=== PATIENT | male | born 1945 | race African-American/Black ===

== ENCOUNTER → 2019-11-04 | Outpatient (CLI) | payer OTHER ==
--- NOTE | 2019-11-04 16:39 | RADIOLOGY REPORT (SQ) ---
EXAM DESCRIPTION: PET CT SKULL/THIGH IMAGES COMPLETED DATE/TIME: 11/04/2019 12:18 pm REASON FOR STUDY: ABN FINDINGS ON CT SCAN Z01.89 ENCOUNTER FOR OTHER SPECIFIED SPECIAL EXAMINATIONS . Right middle lobe pulmonary nodule on CT scan. COMPARISON: CT chest, 09/16/2019. RADIONUCLIDE AND DOSE: 10.2 mCi F18 FDG The route of agent administration: Intravenous FASTING BLOOD SUGAR: 95 mg/dl CONTRAST TYPE AND DOSE: No CT contrast given. TECHNIQUE: Blood glucose level was verified. Above dose of FDG was injected intravenously. 2-D seg mented attenuation correction images were obtained from the base of the skull to the midthighs. Nonc ontrast CT images were obtained for attenuation correction and fusion with emission images. CT image s were performed without oral or intravenous contrast and are not sensitive for parenchymal lesions. A series of overlapping emission PET images were obtained. Images reviewed and manipulated at [facility] work station by the radiologist. Images stored on PACS. LIMITATIONS: None. FINDINGS: HEAD AND NECK: There is hypermetabolic activity in the left maxillary sinus with there is diffuse mucosal thickening and sinus wall buttressing, consistent with chronic left maxillary sinusit is. SUV 6.8. No cervical adenopathy or destructive features. Otherwise normal physiologic activity in the brain. CHEST: Slight interval decrease in size of the solid nodule in the right middle lobe now measuring 1. 3 x 1 cm, previously 1.7 x 1.3 cm by my measurement when measured similarly. This has no hypermetabo lic activity and may represent a resolving infectious/ inflammatory nodule. There is background mode rate pulmonary emphysema. No abnormal hypermetabolic activity in the chest. ABDOMEN AND PELVIS: No areas of abnormal metabolic activity in the abdomen or pelvis. Expected physi ologic activity is present in the genitourinary system and bowel. Background hepatic activity SUV 3. 4. PROXIMAL LOWER EXTREMITIES: No areas of abnormal metabolic activity in the soft tissues of the lower extremities. BONES: No abnormal metabolic activity in the visualized skeleton. ADDITIONAL CT FINDINGS: There is enlargement of the pulmonary arteries with main pulmonary artery renetta suring 4 cm diameter, right pulmonary artery measuring 3.5 cm and left pulmonary artery measuring 3.2 cm. Moderate cardiomegaly. Calcified coronary arteries. Tiny left hepatic lobe cyst. Bilateral r enal cortical cysts. No solid renal mass. Prostatomegaly with prostate measuring 6.7 x 6.6 cm. Mas s effect on the urinary bladder. Severe osteoarthritis left hip. OTHER: No other significant findings. IMPRESSION: 1. Decreasing size of the solid nodule in the right middle lobe, with no associated hypermetabolic ac tivity. This likely represents a resolving infectious/inflammatory nodule. A follow-up CT could be performed in 3- 6 months to confirm continued decrease in size or resolution. 2. Background moderate pulmonary emphysema. 3. Chronic left maxillary sinusitis. 4. Prostatomegaly. 5. Renal cortical cysts and hepatic cyst. TECHNICAL DOCUMENTATION: JOB ID: [id number] 2010 [employer]- All Rights Reserved Reading location - IP/workstation name: [email or web address]
== END ==
LOC: RAD 09:08
PROVIDERS: ATTEND Clinical Nurse Specialist Adult Health
DX: R91.1 Solitary pulmonary nodule (principal); J43.9 Emphysema, unspecified; J32.0 Chronic maxillary sinusitis; I51.7 Cardiomegaly; N40.0 Benign prostatic hyperplasia without lower urinary tract symptoms; N28.1 Cyst of kidney, acquired
CPT/HCPCS: 78815; A9552

== ENCOUNTER → 2020-03-16 | Outpatient (CLI) | payer OTHER ==
--- NOTE | 2020-03-16 13:53 | RADIOLOGY REPORT (SQ) ---
EXAM DESCRIPTION: CT CHEST WITHOUT IMAGES COMPLETED DATE/TIME: 03/16/2020 10:19 am REASON FOR STUDY: (R91.1)SOLITARY PULMONARY NODULE R91.1 SOLITARY PULMONARY NODULE COMPARISON: PET-CT 11/04/2019 TECHNIQUE: CT scan performed of the chest without intravenous contrast. Images reviewed with lung, soft tissue and bone windows. Reconstructed coronal and sagittal MPR images reviewed. All images st ored on PACS. All CT scanners at this facility use dose modulation, iterative reconstruction, and/or weight based d osing when appropriate to reduce radiation dose to as low as reasonably achievable (ALARA). [facility]: Dose Right [facility]: CareDose [facility]: Dose Right [facility]: Teradose 4D [facility]: Smart [employer] RADIATION DOSE: CT Rad equipment meets quality standard of care and radiation dose reduction techniq ues were employed. CTDIvol: 7.0 mGy. DLP: 275 mGy-cm. mGy. LIMITATIONS: No technical limitations. FINDINGS: LUNGS AND PLEURA: Right middle lobe nodule now measures 15.6 x 10.5 mm, slight increase si nce the PET-CT. HILAR AND MEDIASTINAL STRUCTURES: Pulmonary arteries continue to be prominent. No mediastinal or hil ar mass or adenopathy. HEART AND VASCULAR STRUCTURES: No aneurysm. No pericardial effusion. UPPER ABDOMEN: No significant findings. Limited exam. THYROID AND OTHER SOFT TISSUES: No masses. No adenopathy. BONES: No significant finding. HARDWARE: None in the chest. OTHER: No other significant findings. IMPRESSION: The right middle lobe pulmonary nodule is slightly larger than on the most recent previo us study. The pulmonary arteries continue to be prominent, concerning for pulmonary hypertension. N o new findings. TECHNICAL DOCUMENTATION: JOB ID: [id number] Quality ID # [id number]: Final reports with documentation of one or more dose reduction techniques (e.g., Au tomated exposure control, adjustment of the mA and/or kV according to patient size, use of iterative reconstruction technique) 2010 [employer]- All Rights Reserved Reading location - IP/workstation name: [email or web address]
== END ==
LOC: RAD 10:05
PROVIDERS: ATTEND Internal Medicine Pulmonary Disease
DX: R91.1 Solitary pulmonary nodule (principal)
CPT/HCPCS: 71250